=== PATIENT | male | born 1950 | race Caucasian/White ===

== ENCOUNTER 2020-04-24 16:48 | Inpatient (IN) | payer MEDICARE, OTHER ==
[2020-04-24] MEDS ORDERED: Potassium Chloride 20 MEQ Tab.ER PO ONE ×3 (17:01→23:00)
--- NOTE | 2020-04-24 17:48 | EDM.PDOC ---
ED HPI GENERAL MEDICAL PROBLEM - General Chief Complaint: General Stated Complaint: elevated potassium, elevated creatinine Time Seen by Provider: 04/24/20 16:59 Source of Information: Reports: Patient, Family History Limitations: Reports: No Limitations - History of Present Illness INITIAL COMMENTS - FREE TEXT/NARRATIVE: Patient sent here to ER from [facility] at clinic's closing time when they were not able to place patient at [facility] for hypokalemia and elevated Creatinine. Patient has history of chronic kidney disease related to systemic viral infection around 5 years ago per self report. Previous Cr on record here never climbed above 2.0. Today's level 4.73 K 2.9 Patient reports extreme fatigue over the past week. Last weekend had single large loose stool two days in a row. Has not had a bowel movement since then. Poor appetite. Feels light headed/weak/unsteady with ambulation. Daughter came down from [place] to spend last few days with him. No reported Covid exposure. No fevers/chills/URI complaints/cough/SOB. No emesis. Had nausea and stomach upset the two days he had diarrhea. Still urinating. No hematuria/frequency/burning. No neuro changes/focal weakness or numbness. - Related Data Allergies Allergy/AdvReac Type Severity Reaction Status Date / Time No Known Allergies Allergy Verified 04/24/20 17:36 Home Meds: Home Meds Albuterol Sulfate [Proventil Hfa] 2 puff IH Q6H 06/23/18 [History] Ferrous Sulfate 325 mg PO BIDMEALS 06/23/18 [History] Fluticasone/Umeclidin/Vilanter [Trelegy Ellipta 100-62.5-25] 1 puff INH DAILY 06/23/18 [History] Furosemide 20 mg PO DAILY@1500 06/23/18 [History] Furosemide 40 mg PO DAILY 06/23/18 [History] Potassium Chloride [Klor-Con M20] 20 meq PO DAILY 06/23/18 [History] Pregabalin [Lyrica] 75 mg PO DAILY@1200 06/23/18 [History] Pregabalin [Lyrica] 150 mg PO 08,22 06/23/18 [History] Rivaroxaban [Xarelto] 20 mg PO DAILY 06/23/18 [History] allopurinoL [Zyloprim] 150 mg PO DAILY 06/23/18 [History] atorvaSTATin [Lipitor] 80 mg PO BEDTIME 06/23/18 [History] buPROPion [Wellbutrin SR] 150 mg PO BID 06/23/18 [History] carvediloL [Carvedilol] 6.25 mg PO BID 06/23/18 [History] guaiFENesin [Mucus Relief ER] 600 mg PO BID 06/23/18 [History] Past Medical History - Past Health History Medical/Surgical History: Denies Medical/Surgical History Cardiovascular History: Reports: Afib, Blood Clots/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), High Cholesterol, PVD, Other (See Below) (viral myocarditis) Respiratory History: Reports: COPD Genitourinary History: Reports: BPH Musculoskeletal History: Reports: Gout, Other (See Below) (lower extremity swelling) Psychiatric History: Reports: Other (See Below) (On Wellbutrin to help with quitting smoking) Endocrine/Metabolic History: Reports: Obesity/BMI 30+ - Past Surgical History Musculoskeletal Surgical History: Reports: Shoulder Surgery Social & Family History - Tobacco Use Tobacco Use Status *Q: Former Tobacco User - Caffeine Use Caffeine Use: Reports: Other (minimal) - Alcohol Use Alcohol Use History: No - Recreational Drug Use Recreational Drug Use: No Drug Use in Last 12 Months: No - Living Situation & Occupation Living situation: Reports: Single, Alone Occupation: Employed ED ROS GENERAL - Review of Systems Review Of Systems: Comprehensive ROS is negative, except as noted in HPI. ED EXAM, GENERAL - Physical Exam Exam: See Below Exam Limited By: No Limitations General Appearance: Alert, No Apparent Distress, Obese Eye Exam: Bilateral Eye: EOMI, PERRL Ears: Hearing Grossly Normal Nose: No: Nasal Deformity, Nasal Swelling, Nasal Drainage Throat/Mouth: Normal Lips, Normal Voice, No Airway Compromise Head: Atraumatic, Normocephalic Neck: Supple, Non-Tender, Full Range of Motion Respiratory/Chest: No Respiratory Distress, No Accessory Muscle Use, Chest Non- Tender, Wheezing (faint/minimal wheezing at bases) Cardiovascular: Regular Rate, Rhythm, No Murmur GI/Abdominal: Soft, Non-Tender (Male) Exam: Deferred Rectal (Males) Exam: Deferred Back Exam: No: CVA Tenderness (L), CVA Tenderness (R), Muscle Spasm Extremities: Normal Capillary Refill, Pedal Edema (mild/bilateral) Neurological: Alert, Oriented, Normal Cognition Psychiatric: Normal Affect, Normal Mood Skin Exam: Warm, Dry, Intact, Normal Color Course - Vital Signs Last Recorded V/S: Last Vital Signs Temp 36.4 C 04/24/20 16:51 Pulse 68 04/24/20 16:51 Resp 16 04/24/20 16:51 BP 108/66 04/24/20 16:51 Pulse Ox 100 04/24/20 16:51 - Orders/Labs/Meds Orders: Active Orders 24 hr Category Date Time Status CORONAVIRUS COVID-19 TYRONE [MOLEC] Routine Lab 04/24/20 17:41 Ordered Meds: Medications Discontinued Medications Generic Name Dose Route Start Last Admin Trade Name Freq PRN Reason Stop Dose Admin Potassium Chloride 40 meq 04/24/20 17:01 04/24/20 17:36 Klor-Con M20 PO 04/24/20 17:02 40 meq ONETIME ONE Administration - Re-Assessments/Exams Free Text/Narrative Re-Assessment/Exam: 04/24/20 18:01 Call placed to [facility] and patient discussed with /Hospitalist. He recommended hospitalization here, with IV fluid replacement, ongoing monitoring of Bun/Cr, and potassium replacement. Departure - Departure Time of Disposition: 18:02 Disposition: Admitted As Inpatient 65 Condition: Good Clinical Impression: Hypokalemia Acute renal failure (ARF) Qualifiers: Acute renal failure type: unspecified Qualified Code(s): N17.9 - Acute kidney failure, unspecified - Discharge Information *PRESCRIPTION DRUG MONITORING PROGRAM REVIEWED*: Not Applicable *COPY OF PRESCRIPTION DRUG MONITORING REPORT IN PATIENT ROWENA: Not Applicable Referrals: Yolanda Lu PA-C [Primary Care Provider] - Forms: ED Department Discharge Sepsis Event Note (ED) - Evaluation Sepsis Screening Result: No Definite Risk - Focused Exam Vital Signs: Vital Signs Temp Pulse Resp BP Pulse Ox 04/24/20 16:51 36.4 C 68 16 108/66 100 - Problem List & Annotations (1) Acute renal failure (ARF) SNOMED Code(s): 20689282 Code(s): N17.9 - ACUTE KIDNEY FAILURE, UNSPECIFIED Status: Acute Priority: High Current Visit: Yes Annotation/Comment:: History of chronic kidney disease. Acute elevation of Cr to 4.73. Uncertain etiology. Will admit and give fluids/observe Cr per plan discussed with from [facility]/Hospitalist. [facility] not able to accept patient for transfer due to bed situation. If no significant improvement observed over the next few days to contact [facility] again and update plan. Qualifiers: Acute renal failure type: unspecified Qualified Code(s): N17.9 - Acute kidney failure, unspecified (2) Hypokalemia SNOMED Code(s): 38482140 Code(s): E87.6 - HYPOKALEMIA Status: Acute Priority: High Current Visit: Yes Annotation/Comment:: Oral supplementation initiated. 2.9 today (3) Elevated d-dimer SNOMED Code(s): 608829093 Code(s): R79.89 - OTHER SPECIFIED ABNORMAL FINDINGS OF BLOOD CHEMISTRY Status: Acute Priority: Medium Current Visit: Yes Annotation/Comment:: Mildly elevated at 622. Patient denies respiratory changes/SOB and is anticoagulated. Observe for now. (4) Hyperlipidemia SNOMED Code(s): 95323542 Code(s): E78.5 - HYPERLIPIDEMIA, UNSPECIFIED Status: Chronic Priority: Low Current Visit: No Annotation/Comment:: under therapy (5) COPD (chronic obstructive pulmonary disease) SNOMED Code(s): 16240170 Code(s): J44.9 - CHRONIC OBSTRUCTIVE PULMONARY DISEASE, UNSPECIFIED Status: Chronic Priority: Low Current Visit: No Annotation/Comment:: stable per history Qualifiers: COPD type: emphysema Emphysema type: unspecified Qualified Code(s): J43.9 - Emphysema, unspecified (6) BPH (benign prostatic hyperplasia) SNOMED Code(s): 348242717 Code(s): N40.0 - BENIGN PROSTATIC HYPERPLASIA WITHOUT LOWER URINRY TRACT SYMP Status: Chronic Priority: Low Current Visit: No Annotation/Comment:: stable per history Qualifiers: Lower urinary tract symptom presence: symptoms absent Qualified Code(s): N40.0 - Benign prostatic hyperplasia without lower urinary tract symptoms (7) Gout SNOMED Code(s): 34683456 Code(s): M10.9 - GOUT, UNSPECIFIED Status: Chronic Priority: Low Current Visit: No Annotation/Comment:: stable per history Qualifiers: Gout site: unspecified site Gout etiology: unspecified cause (8) Bilateral lower extremity edema SNOMED Code(s): 447058853, 97610399, 554112449 Code(s): R60.0 - LOCALIZED EDEMA Status: Chronic Priority: Low Current Visit: No Annotation/Comment:: stable per history. Uses Lasix to assist with control of symptoms (9) Peripheral vascular disease SNOMED Code(s): 783742010 Code(s): I73.9 - PERIPHERAL VASCULAR DISEASE, UNSPECIFIED Status: Chronic Priority: Low Current Visit: No Annotation/Comment:: stable per history. Uses Lyrica to assist with discomfort. (10) History of DVT of lower extremity SNOMED Code(s): 718192196 Code(s): Z86.718 - PERSONAL HISTORY OF OTHER VENOUS THROMBOSIS AND EMBOLISM Status: Chronic Priority: Low Current Visit: No Annotation/Comment:: IVC filter/chronic anticoagulation (11) Obesity SNOMED Code(s): 777313125, 587328686 Code(s): E66.9 - OBESITY, UNSPECIFIED Status: Chronic Priority: Low Current Visit: Yes Qualifiers: Obesity type: unspecified obesity type Obesity classification: unspecified obesity classification Serious obesity comorbidity presence: with serious comorbidity Qualified Code(s): E66.9 - Obesity, unspecified - Problem List Review Problem List Initiated/Reviewed/Updated: Yes - My Orders Last 24 Hours: My Active Orders 04/24/20 17:41 CORONAVIRUS COVID-19 TYRONE [MOLEC] Routine - Assessment/Plan Admission H&P: Please use this note as an admission H&P Last 24 Hours: My Active Orders 04/24/20 17:41 CORONAVIRUS COVID-19 TYRONE [MOLEC] Routine Assessment:: as above Plan: as above. Initiate IV fluids along with PO K replacement. Recheck labs daily. Follow up with [facility] by phone as needed depending on clinical course. If patient does well overall will need close follow up by his [facility] providers after discharge. Anticipate 3-4 day stay due to high level of creatinine. to assume care in AM
[2020-04-24] MEDS ORDERED: Ondansetron 4 MG/2 ML SDV IVPUSH PRN (18:17)
[2020-04-24] MEDS ORDERED: Acetaminophen 325 MG Tab PO PRN (18:17)
[2020-04-24] MEDS ORDERED: Sodium Chloride 0.9% 10 ML Syringe FLUSH PRN (18:17)
[2020-04-24] MEDS ORDERED: Sodium Chloride 0.9% 1,000 ML IV ONE (18:20)
[2020-04-24] MEDS: Sodium Chloride 0.9% 1,000 ML IV SCH (21:50)
[2020-04-25] MEDS ORDERED: Potassium Chloride 20 MEQ Tab.ER PO ONE ×3 (02:00→05:30)
[2020-04-25] MEDS: Sodium Chloride 0.9% 1,000 ML IV SCH (05:17)
[2020-04-25] MEDS ORDERED: Carvedilol 6.25 MG Tab PO SCH (07:30)
[2020-04-25] MEDS ORDERED: Tamsulosin 0.4 MG Cap.ER PO SCH (08:00)
[2020-04-25] MEDS ORDERED: buPROPion 150 MG Tab.SR PO SCH (08:00)
[2020-04-25] MEDS ORDERED: Tiotropium Inhaler 18 MCG Inhalation Powder Cap Kit of 5 INH SCH (08:00)
[2020-04-25] MEDS ORDERED: Ferrous Sulfate 325 MG Tab PO SCH (08:00)
[2020-04-25] MEDS ORDERED: Rosuvastatin 10 MG Tab PO SCH (08:00)
[2020-04-25] MEDS ORDERED: Formoterol/Mometasone 100-5 MCG 8.8 GM Inhaler IH SCH (08:00)
[2020-04-25] MEDS ORDERED: Apixaban 2.5 MG Tab PO SCH (08:00)
[2020-04-25] MEDS ORDERED: Allopurinol 100 MG Tab PO SCH (08:00)
[2020-04-25] MEDS ORDERED: Sodium Chloride 0.9% 1,000 ML IV ONE (08:52)
[2020-04-25 10:45] VITALS: BP 80/46; PULSE 60
[2020-04-25] MEDS ORDERED: Pregabalin 75 MG Cap PO SCH (12:00)
--- NOTE | 2020-04-25 12:11 | PCM.DCSUM1 ---
Discharge Summary - Hospital Course Free Text/Narrative:: Pt admitted yesterday with elevated Cr and hypotension Pt remains hypotensive and Cr remains elevated at 4.06 after 3 L NS D/W Dr Singh On-call hospitalist Chuy Thurston Will accept in transfer Diagnosis: Stroke: No - Discharge Data Discharge Date: 04/25/20 Discharge Disposition: DC/Tfer to Acute Hospital 02 Condition: Good - Referral to Home Health Primary Care Physician: Yolanda Lu PA-C - Discharge Diagnosis/Problem(s) (1) Hypotension SNOMED Code(s): 23657582 ICD Code: I95.9 - HYPOTENSION, UNSPECIFIED Status: Acute Current Visit: Yes Problem Details: Pt remains hypotensive after 3 L NS IVF D/W Dr Trell Thurston Will accept in transfer (2) Acute renal failure (ARF) SNOMED Code(s): 53877367 ICD Code: N17.9 - ACUTE KIDNEY FAILURE, UNSPECIFIED Status: Acute Priority: High Current Visit: Yes Problem Details: History of chronic kidney disease. Acute elevation of Cr to 4.73. Uncertain etiology. Will admit and give fluids/observe Cr per plan discussed with from [facility]/Hospitalist. [facility] not able to accept patient for transfer due to bed situation. If no significant improvement observed over the next few days to contact [facility] again and update plan. Cr improved to 4.06 after IVF Qualifiers: Acute renal failure type: unspecified Qualified Code(s): N17.9 - Acute kidney failure, unspecified - Patient Summary/Data Consults: Consultations 04/24/20 18:17 OT Evaluation and Treatment [CONS] Routine PT Evaluation and Treatment [CONS] Routine - Discharge Plan *PRESCRIPTION DRUG MONITORING PROGRAM REVIEWED*: Not Applicable *COPY OF PRESCRIPTION DRUG MONITORING REPORT IN PATIENT ROWENA: Not Applicable Home Medications: Home Meds Furosemide 20 mg PO DAILY@1500 06/23/18 [History] Furosemide 40 mg PO DAILY 06/23/18 [History] Pregabalin [Lyrica] 75 mg PO DAILY@1200 06/23/18 [History] allopurinoL [Zyloprim] 150 mg PO DAILY 06/23/18 [History] carvediloL [Carvedilol] 6.25 mg PO BIDMEALS 06/23/18 [History] Apixaban [Eliquis] 1 tab PO BID 04/24/20 [History] Ferrous Sulfate 1 tab PO BID 04/24/20 [History] Fluticasone/Umeclidin/Vilanter [Trelegy Ellipta 100-62.5-25 MCG] 1 inh PO DAILY 04/24/20 [History] Rosuvastatin Calcium 1 tab PO DAILY 04/24/20 [History] Tamsulosin [Flomax] 1 cap PO DAILY 04/24/20 [History] buPROPion [Wellbutrin SR] 1 tab PO BID 04/24/20 [History] calcitrioL [Calcitriol] 1 cap PO ASDIRECTED 04/24/20 [History] Forms: ED Department Discharge Referrals: Yolanda Lu PA-C [Primary Care Provider] - - Discharge Summary/Plan Comment DC Time >30 min.: No - General Info Date of Service: 04/25/20 - Review of Systems General: Reports: Weakness Pulmonary: Reports: Shortness of Breath Cardiovascular: Reports: No Symptoms - Patient Data Vitals - Most Recent: Last Vital Signs Temp 97.9 F 04/25/20 10:44 Pulse 60 04/25/20 10:44 Resp 18 04/25/20 10:44 BP 80/46 L 04/25/20 10:44 Pulse Ox 98 04/25/20 10:44 Weight - Most Recent: 219 lb 0.009 oz I&O - Last 24 hours: Intake & Output 04/25/20 04/25/20 04/25/20 02:59 10:59 18:59 Intake Total 400 2557 1092 Output Total 700 Balance 400 1857 1092 Lab Results - Last 24 hrs: Laboratory Results - last 24 hr 04/24/20 04/25/20 04/25/20 Range/Units 17:41 07:35 07:35 WBC 9.2 (4.0-10.2) K/uL RBC 3.66 L (4.33-5.41) M/uL Hgb 11.0 L D (13.1-16.8) g/dL Hct 35.5 L (39.0-49.0) % MCV 97.0 (84.0-98.0) fL MCH 30.1 (28.2-33.3) pg MCHC 31.0 L (31.7-36.0) g/dL RDW 14.9 H (11.2-14.1) % Plt Count 197 (150-350) K/uL Neut % (Auto) 70.0 (45.0-80.0) % Lymph % (Auto) 18.8 (10.0-50.0) % [place] % (Auto) 8.5 (2.0-14.0) % Eos % (Auto) 2.2 (0.0-5.0) % Baso % (Auto) 0.5 (0.0-2.0) % Neut # (Auto) 6.45 (1.40-7.00) K/uL Lymph # (Auto) 1.73 (0.50-3.50) K/uL [place] # (Auto) 0.78 (0.00-1.00) K/uL Eos # (Auto) 0.20 (0.00-0.50) K/uL Baso # (Auto) 0.05 (0.00-0.20) K/uL Sodium 145 (136-145) mmol/L Potassium 3.8 (3.5-5.1) mmol/L Chloride 110 H (98-107) mmol/L Carbon Dioxide 26.7 (21.0-32.0) mmol/L BUN 29 H (7-18) mg/dL Creatinine 4.06 H* (0.51-1.17) mg/dL Est Cr Clr Drug Dosing 16.38 mL/min Estimated GFR (MDRD) 15 mL/min Glucose 83 (74-106) mg/dL Calcium 7.5 L (8.5-10.1) mg/dL Magnesium 1.6 L (1.8-2.4) mg/dL SARS-CoV-2 RNA (TYRONE) Negative (NEGATIVE) Med Orders - Current: Current Medications Acetaminophen (Tylenol) 650 mg PO Q4H PRN PRN Reason: Pain (Mild 1-3)/fever Allopurinol (Zyloprim) 150 mg PO DAILY [facility] Last Admin: 04/25/20 07:17 Dose: 150 mg Documented by: Apixaban (Eliquis) 2.5 mg PO BID [facility] Last Admin: 04/25/20 07:18 Dose: 2.5 mg Documented by: Bupropion HCl (Wellbutrin Sr) 150 mg PO BID [facility] Last Admin: 04/25/20 07:18 Dose: 150 mg Documented by: Calcitriol (Rocaltrol) 0.25 mcg PO MoWeFr@0800 [facility] Carvedilol (Coreg) 6.25 mg PO BIDMEALS [facility] Last Admin: 04/25/20 07:18 Dose: 6.25 mg Documented by: Ferrous Sulfate (Ferrous Sulfate) 325 mg PO BID [facility] Last Admin: 04/25/20 07:26 Dose: 325 mg Documented by: Sodium Chloride (Normal Saline) 1,000 mls @ 150 mls/hr IV ASDIRECTED [facility] Last Admin: 04/25/20 05:17 Dose: 150 mls/hr Documented by: Magnesium Sulfate/Dextrose 1 (gm/ Premix) 100 mls @ 100 mls/hr IV ONETIME ONE Stop: 04/25/20 13:59 Mometasone Furoate/Formoterol Fumar (Dulera 100-5 Mcg) 2 puff IH BID [facility] Last Admin: 04/25/20 07:19 Dose: 2 inh Documented by: Ondansetron HCl (Zofran) 4 mg IVPUSH Q6H PRN PRN Reason: Nausea/Vomiting Pregabalin (Lyrica) 75 mg PO DAILY@1200 [facility] Last Admin: 04/25/20 12:05 Dose: 75 mg Documented by: Rosuvastatin Calcium (Crestor) 40 mg PO DAILY [facility] Last Admin: 04/25/20 07:18 Dose: 40 mg Documented by: Sodium Chloride (Saline Flush) 10 ml FLUSH ASDIRECTED PRN PRN Reason: Keep Vein Open Last Admin: 04/25/20 10:06 Dose: 10 ml Documented by: Tamsulosin HCl (Flomax) 0.4 mg PO DAILY [facility] Last Admin: 04/25/20 07:18 Dose: 0.4 mg Documented by: Tiotropium [place] (Spiriva Handihaler) 18 mcg INH DAILY [facility] Last Admin: 04/25/20 07:19 Dose: 1 inh Documented by: Discontinued Medications Sodium Chloride (Normal Saline) 1,000 mls @ 500 mls/hr IV .BOLUS ONE Stop: 04/24/20 20:19 Last Admin: 04/24/20 19:49 Dose: 500 mls/hr Documented by: Magnesium Sulfate/Dextrose 1 (gm/ Premix) 100 mls @ 100 mls/hr IV ONETIME ONE Stop: 04/25/20 09:51 Last Admin: 04/25/20 10:04 Dose: 100 mls/hr Documented by: Sodium Chloride (Normal Saline) 1,000 mls @ 500 mls/hr IV .BOLUS ONE Stop: 04/25/20 10:51 Last Admin: 04/25/20 11:59 Dose: 150 mls/hr Documented by: Potassium Chloride (Klor-Con M20) 40 meq PO ONETIME ONE Stop: 04/24/20 17:02 Last Admin: 04/24/20 17:36 Dose: 40 meq Documented by: Potassium Chloride (Klor-Con M20) 40 meq PO ONETIME ONE Stop: 04/24/20 20:01 Last Admin: 04/24/20 19:50 Dose: 40 meq Documented by: Potassium Chloride (Klor-Con M20) 20 meq PO ONETIME ONE Stop: 04/24/20 23:01 Last Admin: 04/24/20 23:34 Dose: 20 meq Documented by: Potassium Chloride (Klor-Con M20) 20 meq PO ONETIME ONE Stop: 04/25/20 03:01 Potassium Chloride (Klor-Con M20) 20 meq PO ONETIME ONE Stop: 04/25/20 05:31 Last Admin: 04/25/20 05:17 Dose: 20 meq Documented by: Potassium Chloride (Klor-Con M20) 20 meq PO ONETIME ONE Stop: 04/25/20 02:01 Last Admin: 04/25/20 02:50 Dose: 20 meq Documented by: - Exam Lungs: Reports: Decreased Breath Sounds Cardiovascular: Reports: Regular Rate GI/Abdominal Exam: Soft, Non-Tender
[2020-04-26] MEDS ORDERED: Calcitriol 0.25 MCG Cap PO SCH (08:00)
== END 2020-04-25 12:40 | DRG 684 ==
LOC: LL.ED 16:48 → LL.MS 17:50
PROVIDERS: ADMIT Emergency Medicine; ATTEND Emergency Medicine
DX: N17.9 Acute kidney failure, unspecified (principal); N18.9 Chronic kidney disease, unspecified; I12.9 Hypertensive chronic kidney disease with stage 1 through stage 4 chronic kidney disease, or unspecified chronic kidney disease; I95.9 Hypotension, unspecified; I48.91 Unspecified atrial fibrillation; E78.00 Pure hypercholesterolemia, unspecified; I73.9 Peripheral vascular disease, unspecified; R60.0 Localized edema; N40.0 Benign prostatic hyperplasia without lower urinary tract symptoms; M10.9 Gout, unspecified; E87.6 Hypokalemia; Z20.828 Contact with and (suspected) exposure to other viral communicable diseases; R79.89 Other specified abnormal findings of blood chemistry; E78.5 Hyperlipidemia, unspecified; J43.9 Emphysema, unspecified; Z79.01 Long term (current) use of anticoagulants; E66.9 Obesity, unspecified; Z87.891 Personal history of nicotine dependence; Z79.899 Other long term (current) drug therapy; Z68.33 Body mass index [BMI] 33.0-33.9, adult; Z86.718 Personal history of other venous thrombosis and embolism
CPT/HCPCS: 36415; 76770; 80048; 83735; 85025; 94640; 97163-GP; 99285-25; A9270-GY; J3475; J7030; U0002

== ENCOUNTER 2020-10-21 11:37 | Emergency (ER) | payer MEDICARE ==
--- NOTE | 2020-10-21 12:14 | EDM.PDOC ---
ED HPI GENERAL MEDICAL PROBLEM - General Chief Complaint: Lower Extremity Injury/Pain Stated Complaint: left ankle injury, fall at home Time Seen by Provider: 10/21/20 12:00 Source of Information: Reports: Patient, Family History Limitations: Reports: No Limitations - History of Present Illness INITIAL COMMENTS - FREE TEXT/NARRATIVE: Patient brought here by family after they found him on couch and he was complaining of recent fall and left ankle pain. Patient has history of falls and family notes increasing unsteadiness/weakness over time that accelerated this past month. Patient lives alone in house. Has not been getting out/exercising/walking much since start of pandemic. Having harder time getting around due to the ankle pain. Says he eats "once a day" and managed to hobble around to kitchen and bathroom yesterday. Patient denies other injuries/acute changes. Left Ankle Pain Score (Numeric/FACES): 4 - Related Data Allergies Allergy/AdvReac Type Severity Reaction Status Date / Time No Known Allergies Allergy Verified 10/21/20 11:55 Home Meds: Home Meds Furosemide 40 mg PO DAILY PRN 06/23/18 [History] allopurinoL [Zyloprim] 300 mg PO DAILY 06/23/18 [History] carvediloL [Carvedilol] 6.25 mg PO BIDMEALS 06/23/18 [History] Apixaban [Eliquis] 1 tab PO BID 04/24/20 [History] Fluticasone/Umeclidin/Vilanter [Trelegy Ellipta 100-62.5-25 MCG] 1 inh PO DAILY 04/24/20 [History] Rosuvastatin Calcium 1 tab PO BEDTIME 04/24/20 [History] Tamsulosin [Flomax] 1 cap PO DAILY 04/24/20 [History] buPROPion [Wellbutrin SR] 1 tab PO BID 04/24/20 [History] Aspirin [Halfprin] 81 mg PO DAILY 10/21/20 [History] Calcium Acetate 667 mg PO TID 10/21/20 [History] Ondansetron [Zofran ODT] 4 mg PO Q6HR PRN 10/21/20 [History] Past Medical History - Past Health History Medical/Surgical History: Denies Medical/Surgical History Cardiovascular History: Reports: Afib, Blood Clots/VTE/DVT, High Cholesterol, PVD, Other (See Below) Respiratory History: Reports: COPD Genitourinary History: Reports: BPH Musculoskeletal History: Reports: Gout, Other (See Below) Psychiatric History: Reports: Other (See Below) Endocrine/Metabolic History: Reports: Obesity/BMI 30+ - Past Surgical History Musculoskeletal Surgical History: Reports: Shoulder Surgery Social & Family History - Caffeine Use Caffeine Use: Reports: Coffee - Living Situation & Occupation Living situation: Reports: Single, Alone Occupation: Employed Review of Systems - Review of Systems Review Of Systems: See Below Constitutional: Reports: No Symptoms Eyes: Denies: Vision Change Ears: Reports: No Symptoms Nose: Reports: No Symptoms Mouth/Throat: Reports: No Symptoms Respiratory: Reports: No Symptoms. Denies: Shortness of Breath, Pleuritic Chest Pain Cardiovascular: Reports: No Symptoms. Denies: Chest Pain, Edema, Irregular Heart Rate, Lightheadedness, Palpitations, Syncope GI/Abdominal: Reports: No Symptoms. Denies: Abdominal Pain, Constipation, Decreased Appetite, Diarrhea, Nausea, Vomiting Genitourinary: Reports: No Symptoms Musculoskeletal: Reports: Other (left ankle pain) Skin: Denies: Bruising, Wound, Lesions Neurological: Reports: Difficulty Walking, Weakness, Gait Disturbance. Denies: Dizziness, Headache, Numbness, Change in Speech Psychiatric: Reports: No Symptoms ED EXAM, GENERAL - Physical Exam Exam: See Below Exam Limited By: No Limitations General Appearance: Alert, WD/WN, No Apparent Distress Eye Exam: Bilateral Eye: EOMI, PERRL Ears: Hearing Grossly Normal Nose: No: Nasal Deformity, Nasal Swelling, Nasal Drainage Throat/Mouth: Normal Lips, Normal Voice, No Airway Compromise Head: Atraumatic, Normocephalic Neck: Supple, Non-Tender, Full Range of Motion Respiratory/Chest: No Respiratory Distress, Lungs Clear, Normal Breath Sounds, Chest Non-Tender Cardiovascular: Normal Peripheral Pulses, Regular Rate, Rhythm, No Edema GI/Abdominal: Normal Bowel Sounds, Soft, Non-Tender, No Distention, Pelvis Stable (Male) Exam: Deferred Rectal (Males) Exam: Deferred Back Exam: No: CVA Tenderness (L), CVA Tenderness (R), Muscle Spasm, Paraspinal Tenderness, Vertebral Tenderness Extremities: Normal Capillary Refill, Other (tender left ankle area, more so medically. No obvious deformity. Mild swelling. No redness or bruising . Skin intact. Vasc. intact. ) Neurological: Alert, Normal Cognition Psychiatric: Normal Affect, Normal Mood Skin Exam: Warm, Dry, Intact, Normal Color Course - Vital Signs Last Recorded V/S: Last Vital Signs Temp 36.8 C 10/21/20 11:41 Pulse 63 10/21/20 11:56 Resp 18 10/21/20 11:56 BP 103/47 L 10/21/20 11:56 Pulse Ox 99 10/21/20 11:56 - Orders/Labs/Meds Orders: Active Orders 24 hr Category Date Time Status Ankle Min 3V Lt [CR] Stat Exams 10/21/20 11:39 Taken UA W/RAMA RFLX IF INDICATED [URIN] Stat Lab 10/21/20 11:38 Received UA W/MICROSCOPIC [URIN] Routine Lab 10/21/20 14:32 Ordered Labs: Laboratory Tests 10/21/20 10/21/20 10/21/20 Range/Units 11:45 11:45 11:45 WBC 6.7 (4.0-10.2) K/uL RBC 3.56 L (4.33-5.41) M/uL Hgb 10.7 L (13.1-16.8) g/dL Hct 34.1 L (39.0-49.0) % MCV 95.8 (84.0-98.0) fL MCH 30.1 (28.2-33.3) pg MCHC 31.4 L (31.7-36.0) g/dL RDW 15.3 H (11.2-14.1) % Plt Count 213 (150-350) K/uL Neut % (Auto) 77.7 (45.0-80.0) % Lymph % (Auto) 14.2 (10.0-50.0) % [place] % (Auto) 5.8 (2.0-14.0) % Eos % (Auto) 1.9 (0.0-5.0) % Baso % (Auto) 0.4 (0.0-2.0) % Neut # (Auto) 5.20 (1.40-7.00) K/uL Lymph # (Auto) 0.95 (0.50-3.50) K/uL [place] # (Auto) 0.39 (0.00-1.00) K/uL Eos # (Auto) 0.13 (0.00-0.50) K/uL Baso # (Auto) 0.03 (0.00-0.20) K/uL PT 10.9 (9.5-12.0) SEC INR 1.1 Sodium 140 (136-145) mmol/L Potassium 4.0 (3.5-5.1) mmol/L Chloride 106 (98-107) mmol/L Carbon Dioxide 24.5 (21.0-32.0) mmol/L BUN 22 H (7-18) mg/dL Creatinine 2.46 H D (0.51-1.17) mg/dL Est Cr Clr Drug Dosing 26.12 mL/min Estimated GFR (MDRD) 26 mL/min Glucose 113 H (70-99) mg/dL Calcium 8.0 L (8.5-10.1) mg/dL Total Bilirubin 1.1 H (0.2-1.0) mg/dL AST 16 (15-37) U/L ALT 22 (12-78) U/L Alkaline Phosphatase 95 (46-116) IU/L Total Protein 6.4 (6.4-8.2) g/dL Albumin 2.8 L (3.4-5.0) g/dL - Radiology Interpretation Free Text/Narrative:: Xray per Radiology showed "healing" distal fibula fracture. - Re-Assessments/Exams Free Text/Narrative Re-Assessment/Exam: 10/21/20 14:31 Basic labs obtained as family indicated patient has been getting weaker over the past month or so. Overall unremarkable. Hgb 10.7. Cr 2.46. This is a good number for the patient as he has been known previously to get over 4.0 Xray shows evidence that fracture is healing. Uncertain as to how old fracture is. Patient/family note that he has been falling at home. Family is interested in the patient moving closer to them in [place] as they are worried about his ability to live safely at home. Plan for now is to splint the left ankle. He will be going home with his family in the [place] area. They will follow up with his PCP and Ortho in regards to the left ankle injury/further treatment and also further snf planning given patient's increasing difficulties with balance and strength. Patient unable to safely use crutches. Departure - Departure Time of Disposition: 14:56 Disposition: Home, Self-Care 01 Condition: Good Clinical Impression: Repeated falls, Impaired mobility and ADLs Closed left fibular fracture Qualifiers: Encounter type: initial encounter Fibula location: distal Fracture morphology: unspecified fracture morphology Qualified Code(s): S82.832A - Other fracture of upper and lower end of left fibula, initial encounter for closed fracture - Discharge Information *PRESCRIPTION DRUG MONITORING PROGRAM REVIEWED*: Not Applicable *COPY OF PRESCRIPTION DRUG MONITORING REPORT IN PATIENT ROWENA: Not Applicable Referrals: PCP,Not In Area [Primary Care Provider] - Forms: ED Department Discharge Additional Instructions: Keep splint on for protection. Follow up in [place] with patient's primary provider and Orthopedics. They need to determine approximate age of fracture as it appears to not be a new break. Also need to determine best way to treat it. Look into options for PT/OT/ADLs and best living situation for patient. Sepsis Event Note (ED) - Focused Exam Vital Signs: Vital Signs Temp Pulse Resp BP Pulse Ox 10/21/20 11:56 63 18 103/47 L 99 10/21/20 11:41 36.8 C 62 20 105/49 L 99 10/21/20 11:37 36.8 C 60 18 112/49 L 99 - My Orders Last 24 Hours: My Active Orders 10/21/20 11:38 UA W/RAMA RFLX IF INDICATED [URIN] Stat 10/21/20 11:39 Ankle Min 3V Lt [CR] Stat 10/21/20 14:32 UA W/MICROSCOPIC [URIN] Routine - Assessment/Plan Last 24 Hours: My Active Orders 10/21/20 11:38 UA W/RAMA RFLX IF INDICATED [URIN] Stat 10/21/20 11:39 Ankle Min 3V Lt [CR] Stat 10/21/20 14:32 UA W/MICROSCOPIC [URIN] Routine
[2020-10-21 13:24] VITALS: BP 103/47; PULSE 63
== END 2020-10-21 15:15 | disposition home or self-care (01) ==
LOC: LL.ED 11:37
DX: S82.832A Other fracture of upper and lower end of left fibula, initial encounter for closed fracture (principal); R26.81 Unsteadiness on feet; I48.91 Unspecified atrial fibrillation; E78.00 Pure hypercholesterolemia, unspecified; Z86.718 Personal history of other venous thrombosis and embolism; J44.9 Chronic obstructive pulmonary disease, unspecified; N40.0 Benign prostatic hyperplasia without lower urinary tract symptoms; M10.9 Gout, unspecified; E66.9 Obesity, unspecified; Z68.32 Body mass index [BMI] 32.0-32.9, adult; Z79.82 Long term (current) use of aspirin; Z79.01 Long term (current) use of anticoagulants; Z79.899 Other long term (current) drug therapy; Z91.81 History of falling; W19.XXXA Unspecified fall, initial encounter; Y92.009 Unspecified place in unspecified non-institutional (private) residence as the place of occurrence of the external cause
CPT/HCPCS: 29515; 36415; 73610-LT; 80053; 85025; 85610; 99283-25; 99284

== ENCOUNTER 2021-03-31 11:34 | Emergency (ER) | payer MEDICARE ==
[2021-03-31] MEDS ORDERED: Sodium Chloride 0.9% 10 ML Syringe FLUSH PRN (11:49)
[2021-03-31] MEDS ORDERED: Lactated Ringers 1,000 ML IV SCH (12:00)
[2021-03-31 12:12] VITALS: PULSE 85
--- NOTE | 2021-03-31 12:18 | EDM.PDOC ---
ED HPI GENERAL MEDICAL PROBLEM - General Chief Complaint: General Stated Complaint: Dizzy, cough, n/v Time Seen by Provider: 03/31/21 11:40 Source of Information: Reports: Patient History Limitations: Reports: No Limitations - History of Present Illness INITIAL COMMENTS - FREE TEXT/NARRATIVE: Patient comes emergency department today from home with complaints of he had to come to the emergency department because his daughter went to leave him alone for being at home. Patient is a rather poor historian at best. Speaking with the daughter since Friday he has been weak lightheaded he has had a couple falls at home without injury. He has had some nausea and vomiting. No diarrhea. No fever no chills. The patient's only complaint is that he has had a cough for the past couple of days. That is nonproductive. He does have a history of chronic renal failure for which he used to get dialysis but does not anymore. He relates that he vomited maybe once but he does not really remember. He has no abdominal pain. No shortness of breath. Cough that is nonproductive. He complains of generalized weakness but nothing more than normal. No chest pain palpitations syncope. No abdominal pain. No diarrhea. He has been urinating okay. No painful urination. No urinary frequency. He does have his Covid vaccine. Patient has a history of A. fib chronic diastolic heart failure coronary artery disease navarrete lobar emphysema NIKO CKD stage IV - Related Data Allergies Allergy/AdvReac Type Severity Reaction Status Date / Time No Known Allergies Allergy Verified 10/21/20 11:55 Home Meds: Home Meds Furosemide 40 mg PO DAILY PRN 06/23/18 [History] allopurinoL [Zyloprim] 150 mg PO DAILY 06/23/18 [History] carvediloL [Carvedilol] 6.25 mg PO BIDMEALS 06/23/18 [History] Apixaban [Eliquis] 1 tab PO BID 04/24/20 [History] Rosuvastatin Calcium 1 tab PO BEDTIME 04/24/20 [History] buPROPion [Wellbutrin SR] 1 tab PO BID 04/24/20 [History] Aspirin [Halfprin] 81 mg PO DAILY 10/21/20 [History] Calcium Acetate 667 mg PO TIDMEALS 10/21/20 [History] Ondansetron [Zofran ODT] 4 mg PO Q6HR PRN 10/21/20 [History] Past Medical History - Past Health History Medical/Surgical History: Denies Medical/Surgical History Cardiovascular History: Reports: Afib, Blood Clots/VTE/DVT, High Cholesterol, PVD, Other (See Below) Respiratory History: Reports: COPD Genitourinary History: Reports: Acute Renal Failure, BPH Other Genitourinary History: Hx. of dialysis 2014 Musculoskeletal History: Reports: Gout Psychiatric History: Reports: Other (See Below) Endocrine/Metabolic History: Reports: Obesity/BMI 30+ - Past Surgical History Musculoskeletal Surgical History: Reports: Shoulder Surgery Social & Family History - Tobacco Use Tobacco Use Status *Q: Former Tobacco User Years of Tobacco use: 35 Used Tobacco, but Quit: Yes Month/Year Tobacco Last Used: 2015 Second Hand Smoke Exposure: No - Caffeine Use Caffeine Use: Reports: Coffee, Soda - Recreational Drug Use Recreational Drug Use: No - Living Situation & Occupation Living situation: Reports: Single, Alone Occupation: Employed ED ROS GENERAL - Review of Systems Review Of Systems: Comprehensive ROS is negative, except as noted in HPI. ED EXAM, GENERAL - Physical Exam Exam: See Below Exam Limited By: No Limitations General Appearance: Alert, WD/WN, No Apparent Distress Eye Exam: Bilateral Eye: EOMI Ears: Normal External Exam Nose: Normal Inspection Throat/Mouth: Normal Inspection (other than dry oral mucosa. ) Head: Atraumatic, Normocephalic Neck: Normal Inspection Respiratory/Chest: No Respiratory Distress, Lungs Clear, No Accessory Muscle Use, Chest Non-Tender, Decreased Breath Sounds. No: Crackles, Rales, Rhonchi, Wheezing Cardiovascular: Normal Peripheral Pulses (somewhat weak. ), No Murmur, Irregularly Irregular GI/Abdominal: Normal Bowel Sounds, Soft, Non-Tender (Male) Exam: Deferred Rectal (Males) Exam: Deferred Back Exam: Normal Inspection Extremities: Normal Inspection, Normal Range of Motion, Non-Tender, No Pedal Edema, Normal Capillary Refill Neurological: Alert, Oriented, Normal Cognition, No Motor/Sensory Deficits Psychiatric: Normal Affect, Normal Mood Skin Exam: Warm, Dry, Intact, Normal Color, No Rash Course - Vital Signs Last Recorded V/S: Last Vital Signs Temp 98.1 F 03/31/21 11:50 Pulse 85 03/31/21 11:50 Resp 18 03/31/21 11:50 BP 94/52 L 03/31/21 11:50 Pulse Ox 97 03/31/21 11:50 - Orders/Labs/Meds Orders: Active Orders 24 hr Category Date Time Status Peripheral IV Care [RC] . DIRECTED Care 03/31/21 11:51 Active Chest 2V [CR] Urgent Exams 03/31/21 11:49 Ordered C-REACTIVE PROTEIN [CHEM] Stat Lab 03/31/21 11:52 Received COMPREHENSIVE METABOLIC PN,CMP [CHEM] Stat Lab 03/31/21 11:52 Received CORONAVIRUS COVID-19 YTRONE [MOLEC] Stat Lab 03/31/21 11:38 Received LACTIC ACID [CHEM] Stat Lab 03/31/21 11:52 Received MAGNESIUM [CHEM] Stat Lab 03/31/21 11:52 Received PHOSPHORUS [CHEM] Stat Lab 03/31/21 12:19 Ordered UA RFX RAMA AND CULT IF INDIC [URIN] Stat Lab 03/31/21 11:49 Ordered Lactated Ringers [Ringers, Lactated] 1,000 ml Med 03/31/21 12:00 Active IV ASDIRECTED Sodium Chloride 0.9% [Saline Flush] Med 03/31/21 11:49 Active 10 ml FLUSH ASDIRECTED PRN Peripheral IV Insertion Adult [OM.PC] Stat Oth 03/31/21 11:49 Ordered Medication Orders Lactated Ringer's (Ringers, Lactated) 1,000 mls @ 125 mls/hr IV ASDIRECTED IBRAHIMA Last Admin: 03/31/21 11:59 Dose: 125 mls/hr Documented by: TODD Sodium Chloride (Sodium Chloride 0.9% 10 Ml Syringe) 10 ml FLUSH ASDIRECTED PRN PRN Reason: Keep Vein Open Labs: Laboratory Tests 03/31/21 Range/Units 11:52 WBC 5.1 (4.0-10.2) K/uL RBC 3.95 L (4.33-5.41) M/uL Hgb 11.4 L (13.1-16.8) g/dL Hct 35.6 L (39.0-49.0) % MCV 90.1 D (84.0-98.0) fL MCH 28.9 (28.2-33.3) pg MCHC 32.0 (31.7-36.0) g/dL RDW 15.0 H (11.2-14.1) % Plt Count 153 (150-350) K/uL Neut % (Auto) 78.0 (45.0-80.0) % Lymph % (Auto) 11.5 (10.0-50.0) % [place] % (Auto) 10.1 (2.0-14.0) % Eos % (Auto) 0.2 (0.0-5.0) % Baso % (Auto) 0.2 (0.0-2.0) % Neut # (Auto) 3.95 (1.40-7.00) K/uL Lymph # (Auto) 0.58 (0.50-3.50) K/uL [place] # (Auto) 0.51 (0.00-1.00) K/uL Eos # (Auto) 0.01 (0.00-0.50) K/uL Baso # (Auto) 0.01 (0.00-0.20) K/uL Meds: Medications Generic Name Dose Route Start Last Admin Trade Name Freq PRN Reason Stop Dose Admin Lactated Ringer's 1,000 mls @ 125 mls/hr 03/31/21 12:00 03/31/21 11:59 Ringers, Lactated IV 125 mls/hr ASDIRECTED IBRAHIMA Administration Sodium Chloride 10 ml 03/31/21 11:49 Sodium Chloride 0.9% 10 Ml Syringe FLUSH ASDIRECTED PRN Keep Vein Open - Re-Assessments/Exams Free Text/Narrative Re-Assessment/Exam: 03/31/21 12:18 IV was established labs were drawn. Lactated Ringer's 500 mill bolus and 125 mils an hour. I did review his chart in [facility] and on 03-06-21 he had a creatinine of 2.88 with a BUN of 21, potassium 3.9 sodium 141 phosphorus 2.6 03/31/21 13:41 His blood pressure is a little labile in the ED although reviewing his [facility] chart he has normally a blood pressure of about 100/50. He is not requiring any oxygen therapy. He is in no distress. He is not complaining of any nausea or vomiting in the emergency department. 03/31/21 13:44 Laboratory evaluation with a CBC with a white blood cell count of 5.1, hemoglobin 11.4, platelet count 153. CMP creatinine 2.61, BUN 33, phosphorus 3.0 magnesium 2.0. His creatinine at baseline is about 2.3-2.4 CRP 15.9. His Covid is POSITIVE with symptom onset of 03/27/21 His chest x-ray initially reviewed extemporaneously by myself does not show any infiltrate consolidation effusions. Radiological review to follow. This patient with his chronic kidney disease as well as his navarrete lobar emphysema is at high risk for sequelae of COVID-19. He is vaccinated patient although he is positive. Monoclonal antibody therapy would be appropriate for him at this time. Although we do not have any of this medication available due to the national shortage. I did call and talk with [facility] in [place] and they are able to give monoclonal antibody therapy on Friday at 1030. Information was explained to the patient as well as his family. EUA recommendation I spoke with the patient to provide information about the emergency use medication for Moe Wade. I offer them the fact she for patients and parents caregivers for UA medication to read and review for Casirivimab and Imdevimab. I stated that therapy has been approved by emergency with authorization and not fully FDA approved. Shared potential risk from therapy including adverse reactions and possibility of worsening sequelae. I discussed her potential treatment options are currently not FDA approved to treat COVID-19 although for this patient is not indicated questions were answered and he was comfortable with this plan. The patient himself voiced understanding agreed to proceed with the treatment for himself. A this time he does not meet inpatient criteria although he is just getting into the time from of symptom onset for worsening of disease. He will have to follow closely with PCP and have them notified on friday as well as his nephrology team. The patient and his family are comfortable with this plan and their questions answered. Departure - Departure Time of Disposition: 13:48 Disposition: Home, Self-Care 01 Clinical Impression: COVID Nausea & vomiting Qualifiers: Vomiting type: unspecified Vomiting Intractability: unspecified Qualified Code(s): R11.2 - Nausea with vomiting, unspecified Acute on chronic renal failure Qualifiers: Acute renal failure type: unspecified Chronic kidney disease stage: stage 4 (severe) Qualified Code(s): N17.9 - Acute kidney failure, unspecified; N18.4 - Chronic kidney disease, stage 4 (severe) - Discharge Information Instructions: Nausea and Vomiting, Adult, [id number], Chronic Kidney Disease, Adult, [id number], COVID-19: How to Protect Yourself and Others - CDC, COVID- 19: Quarantine vs. Isolation - CDC (06/22/2020), Emergency Use Authorization (EUA) of the [place] COVID-19 Vaccine: Fact Sheet for Recipients and Caregivers - FDA (01/11/2021), COVID-19: What to Do If You Are Sick- [facility] (09/20/2020) Referrals: Yolanda Lu PA-C [Primary Care Provider] - Forms: ED Department Discharge Additional Instructions: Stay home and quarantine for the 14 days from symptom development. Notify all close contacts of your diagnosis of covid. Push oral fluids especially water gatorade or powerade. This is so important especially with your kidney disease history. Small frequent meals. On friday there is an appointment set up for you at [facility] at 10:30 am. [facility], [address] [place] [address], [address] [place] of the hospital from [facility]. Contact phone number is [phone]. Nobody can go with you. Infusion takes about 3 hrs. No TV so bring something to keep occupied. Zofran 1 tablet every 6 hrs as needed for nausea. Bottle send home from the ED. Return to the ED if new or worsening symptoms. Contact your PCP on friday about your COVID status and plan of care. Also contact you nephrology provider to keep him aware. We will need to watch your kidney function and your status closely. Sepsis Event Note (ED) - Evaluation Sepsis Screening Result: No Definite Risk - Focused Exam Vital Signs: Vital Signs Temp Pulse Resp BP Pulse Ox 03/31/21 11:50 98.1 F 85 18 94/52 L 97 - My Orders Last 24 Hours: My Active Orders 03/31/21 11:38 CORONAVIRUS COVID-19 TYRONE [MOLEC] Stat 03/31/21 11:49 Chest 2V [CR] Urgent UA RFX RAMA AND CULT IF INDIC [URIN] Stat Sodium Chloride 0.9% [Saline Flush] 10 ml FLUSH ASDIRECTED PRN Peripheral IV Insertion Adult [OM.PC] Stat 03/31/21 11:51 Peripheral IV Care [RC] . DIRECTED 03/31/21 11:52 C-REACTIVE PROTEIN [CHEM] Stat COMPREHENSIVE METABOLIC PN,CMP [CHEM] Stat LACTIC ACID [CHEM] Stat MAGNESIUM [CHEM] Stat 03/31/21 12:00 Lactated Ringers [Ringers, Lactated] 1,000 ml IV ASDIRECTED 03/31/21 12:19 PHOSPHORUS [CHEM] Stat - Assessment/Plan Last 24 Hours: My Active Orders 03/31/21 11:38 CORONAVIRUS COVID-19 TYRONE [MOLEC] Stat 03/31/21 11:49 Chest 2V [CR] Urgent UA RFX RAMA AND CULT IF INDIC [URIN] Stat Sodium Chloride 0.9% [Saline Flush] 10 ml FLUSH ASDIRECTED PRN Peripheral IV Insertion Adult [OM.PC] Stat 03/31/21 11:51 Peripheral IV Care [RC] . DIRECTED 03/31/21 11:52 C-REACTIVE PROTEIN [CHEM] Stat COMPREHENSIVE METABOLIC PN,CMP [CHEM] Stat LACTIC ACID [CHEM] Stat MAGNESIUM [CHEM] Stat 03/31/21 12:00 Lactated Ringers [Ringers, Lactated] 1,000 ml IV ASDIRECTED 03/31/21 12:19 PHOSPHORUS [CHEM] Stat
[2021-03-31 12:30] LABS: ANION GAP 10.4 meq/L (7-15); CHLORIDE,CL 104 mmol/L (98-107); SODIUM,NA 138 mmol/L (136-145)
[2021-03-31 13:29] VITALS: BP 107/41
== END 2021-03-31 14:00 | disposition home or self-care (01) ==
LOC: LL.ED 11:34
DX: U07.1 COVID-19 (principal); N17.9 Acute kidney failure, unspecified; N18.4 Chronic kidney disease, stage 4 (severe); R11.2 Nausea with vomiting, unspecified; I48.91 Unspecified atrial fibrillation; J44.9 Chronic obstructive pulmonary disease, unspecified; E78.00 Pure hypercholesterolemia, unspecified; M10.9 Gout, unspecified; Z79.01 Long term (current) use of anticoagulants; Z79.899 Other long term (current) drug therapy; Z79.82 Long term (current) use of aspirin; Z86.718 Personal history of other venous thrombosis and embolism; Z87.891 Personal history of nicotine dependence
CPT/HCPCS: 71046; 80053; 83605; 83735; 84100; 85025; 86140; 99284; 99284-25; J7120; U0002

== ENCOUNTER 2021-05-14 01:32 | Emergency (ER) | payer MEDICARE ==
[2021-05-14] MEDS ORDERED: Sodium Chloride 0.9% 10 ML Syringe FLUSH PRN (01:43)
[2021-05-14] MEDS ORDERED: Morphine 2 MG/ML SYRINGE IVPUSH ONE (01:43)
[2021-05-14] MEDS ORDERED: Ondansetron 4 MG/2 ML SDV IV ONE (01:43)
--- NOTE | 2021-05-14 01:43 | EDM.PDOC ---
ED HPI GENERAL MEDICAL PROBLEM - General Chief Complaint: Upper Extremity Injury/Pain Stated Complaint: LEFT SIDE PAIN, LEFT SHOULDER PAIN S/P FALL Time Seen by Provider: 05/14/21 01:35 Source of Information: Reports: Patient, Family History Limitations: Reports: No Limitations - History of Present Illness INITIAL COMMENTS - FREE TEXT/NARRATIVE: Patient comes emergency department today from home with his son with concerns of a fall and left lateral chest pain. This patient approximately 12 hours ago at noon time was at home when he was ambulating his feet got caught on a rug and he fell landing on his left chest. He did not hit his head. There was no loss of conscious. He has no head neck or back pain. He fell landing on his left rib cage. He has had some severe pain to the left rib cage since the time of his fall. He has some difficulty breathing but no shortness of breath. No midsternal chest pain. No abdominal pain nausea or vomiting. Prior to his fall he did not have any symptoms of weakness dizziness lightheadedness chest pain. He has had no fever or chills. No cough or congestion. He has a history of atrial fibrillation, chronic diastolic heart failure, CVD, coronary artery disease, DVT, PAT navarrete lobar emphysema NIKO CKD stage IV. 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 Left Shoulder Pain Score (Numeric/FACES): 6 - Related Data Allergies Allergy/AdvReac Type Severity Reaction Status Date / Time No Known Allergies Allergy Verified 05/14/21 01:33 Home Meds: Home Meds Furosemide 40 mg PO DAILY PRN 06/23/18 [History] allopurinoL [Zyloprim] 150 mg PO DAILY 06/23/18 [History] carvediloL [Carvedilol] 6.25 mg PO BIDMEALS 06/23/18 [History] Apixaban [Eliquis] 1 tab PO BID 04/24/20 [History] Rosuvastatin Calcium 1 tab PO BEDTIME 04/24/20 [History] buPROPion [Wellbutrin SR] 1 tab PO BID 04/24/20 [History] Aspirin [Halfprin] 81 mg PO DAILY 10/21/20 [History] Calcium Acetate 667 mg PO TIDMEALS 10/21/20 [History] Ondansetron [Zofran ODT] 4 mg PO Q6HR PRN 10/21/20 [History] Fluticasone/Umeclidin/Vilanter [Trelegy Ellipta 100-62.5-25] 1 puff INH DAILY 05/14/21 [History] Sodium Bicarbonate 1 tab PO BID 05/14/21 [History] Tamsulosin [Flomax] 1 cap PO BEDTIME 05/14/21 [History] Past Medical History - Past Health History Medical/Surgical History: Denies Medical/Surgical History Cardiovascular History: Reports: Afib, Blood Clots/VTE/DVT, High Cholesterol, PVD, Other (See Below) Respiratory History: Reports: COPD Genitourinary History: Reports: Acute Renal Failure, BPH Other Genitourinary History: Hx. of dialysis 2014 Musculoskeletal History: Reports: Gout Psychiatric History: Reports: Other (See Below) Endocrine/Metabolic History: Reports: Obesity/BMI 30+ - Past Surgical History Musculoskeletal Surgical History: Reports: Shoulder Surgery Social & Family History - Caffeine Use Caffeine Use: Reports: Coffee, Soda - Living Situation & Occupation Living situation: Reports: Single, Alone Occupation: Employed Review of Systems - Review of Systems Review Of Systems: Comprehensive ROS is negative, except as noted in HPI. ED EXAM, GENERAL - Physical Exam Exam: See Below Exam Limited By: No Limitations General Appearance: Alert, WD/WN, No Apparent Distress, Thin (Frail appearing 70-year-old.) Eye Exam: Bilateral Eye: EOMI, PERRL Ears: Normal External Exam Nose: Normal Inspection Throat/Mouth: Normal Inspection Head: Atraumatic, Normocephalic Neck: Normal Inspection, Supple, Non-Tender, Full Range of Motion, Other (Trachea midline). No: Tender Lateral, Tender Midline Respiratory/Chest: Lungs Clear, No Accessory Muscle Use, Decreased Breath Sounds (Throughout.), Other (On the anterior left axillary line in the intercostal space proximately 789 he has some tenderness and I question of flail segment. No subcutaneous emphysema. No bruising.). No: Crackles, Rales, Rhonchi, Wheezing, Accessory Muscle Use Cardiovascular: Normal Peripheral Pulses, Regular Rate, Rhythm Peripheral Pulses: 2+: Radial (L), Radial (R) GI/Abdominal: Normal Bowel Sounds, Soft, Non-Tender (Male) Exam: Deferred Rectal (Males) Exam: Deferred Back Exam: Normal Inspection, Full Range of Motion. No: Paraspinal Tenderness, Vertebral Tenderness Extremities: Normal Inspection, Normal Range of Motion, No Pedal Edema, Normal Capillary Refill Neurological: Alert, Oriented, Normal Cognition, No Motor/Sensory Deficits Psychiatric: Normal Affect, Normal Mood Skin Exam: Warm, Dry, Intact, Normal Color, No Rash Course - Vital Signs Last Recorded V/S: Last Vital Signs Temp 98.2 F 05/14/21 01:35 Pulse 86 05/14/21 01:35 Resp 24 H 05/14/21 01:35 BP 125/54 L 05/14/21 01:35 Pulse Ox 100 05/14/21 01:35 - Orders/Labs/Meds Orders: Active Orders 24 hr Category Date Time Status Peripheral IV Care [RC] . DIRECTED Care 05/14/21 01:43 Active Ribs 2V wo Chest Lt [CR] Stat Exams 05/14/21 01:44 Taken Shoulder Comp Lt [CR] Stat Exams 05/14/21 01:45 Taken CORONAVIRUS COVID-19 TYRONE [MOLEC] Stat Lab 05/14/21 03:00 Received Sodium Chloride 0.9% [Saline Flush] Med 05/14/21 01:43 Active 10 ml FLUSH ASDIRECTED PRN Peripheral IV Insertion Adult [OM.PC] Stat Oth 05/14/21 01:43 Ordered Medication Orders Sodium Chloride (Sodium Chloride 0.9% 10 Ml Syringe) 10 ml FLUSH ASDIRECTED PRN PRN Reason: Keep Vein Open Labs: Laboratory Tests 05/14/21 05/14/21 Range/Units 02:50 02:50 WBC 11.3 H (4.0-10.2) K/uL RBC 3.88 L (4.33-5.41) M/uL Hgb 11.2 L (13.1-16.8) g/dL Hct 36.4 L (39.0-49.0) % MCV 93.8 D (84.0-98.0) fL MCH 28.9 (28.2-33.3) pg MCHC 30.8 L (31.7-36.0) g/dL RDW 16.0 H (11.2-14.1) % Plt Count 227 (150-350) K/uL Neut % (Auto) 79.9 (45.0-80.0) % Lymph % (Auto) 10.1 (10.0-50.0) % [place] % (Auto) 9.5 (2.0-14.0) % Eos % (Auto) 0.3 (0.0-5.0) % Baso % (Auto) 0.2 (0.0-2.0) % Neut # (Auto) 9.05 H (1.40-7.00) K/uL Lymph # (Auto) 1.14 (0.50-3.50) K/uL [place] # (Auto) 1.08 H (0.00-1.00) K/uL Eos # (Auto) 0.03 (0.00-0.50) K/uL Baso # (Auto) 0.02 (0.00-0.20) K/uL Sodium 144 (136-145) mmol/L Potassium 4.4 (3.5-5.1) mmol/L Chloride 107 (98-107) mmol/L Carbon Dioxide 29.7 (21.0-32.0) mmol/L Anion Gap 7.3 (7-15) meq/L BUN 31 H (7-18) mg/dL Creatinine 2.83 H (0.51-1.17) mg/dL Est Cr Clr Drug Dosing 23.16 mL/min Estimated GFR (MDRD) 22 mL/min Glucose 135 H (70-99) mg/dL Calcium 9.4 D (8.5-10.1) mg/dL Total Bilirubin 0.6 (0.2-1.0) mg/dL AST 22 (15-37) U/L ALT 13 (12-78) U/L Alkaline Phosphatase 96 (46-116) IU/L Total Protein 6.6 (6.4-8.2) g/dL Albumin 2.6 L (3.4-5.0) g/dL Meds: Medications Generic Name Dose Route Start Last Admin Trade Name Freq PRN Reason Stop Dose Admin Sodium Chloride 10 ml 05/14/21 01:43 Sodium Chloride 0.9% 10 Ml Syringe FLUSH ASDIRECTED PRN Keep Vein Open Discontinued Medications Generic Name Dose Route Start Last Admin Trade Name Freq PRN Reason Stop Dose Admin Morphine Sulfate 2 mg 05/14/21 01:43 05/14/21 02:46 Morphine 2 Mg/Ml Syringe IVPUSH 05/14/21 01:44 2 mg ONETIME ONE Administration Ondansetron HCl 4 mg 05/14/21 01:43 05/14/21 02:47 Ondansetron 4 Mg/2 Ml Sdv IV 05/14/21 01:44 4 mg ONETIME ONE Administration - Radiology Interpretation Free Text/Narrative:: Chest x-ray initially reviewed extemporaneously by myself. There is no hemopneumothorax. There are multiple rib fractures along the left of the chest. There is clearly a flail segment what appears to be rib #9. Radiological review to follow. Patient Name: RADHA ROSARIO Date of : 1950 Procedure: XRAY SHOULDER MIN 2 VIEWS LT Date of Service: 05/14/2021 EXAM: XRAY SHOULDER MIN 2 VIEWS LT INDICATION: Male, 70 years year old patient, ICD-10 W19.XXXA Fall ICD-10 M25.519 Shoulder pain COMPARISON(S): 07/26/2016 TECHNIQUE: 3 view(s) of the left shoulder were obtained. FINDINGS: The soft tissue structures are unremarkable. Normal visualized ipsilateral pulmonary apex. There are chronic healed fractures involving anterior lateral third and fourth ribs on the left. There is no acute fracture. Grossly unremarkable total shoulder arthroplasty. Alignment is near anatomic. No hardware complication. There is degenerative arthrosis of the acromioclavicular joint. IMPRESSION: Unremarkable left shoulder arthroplasty. No acute bony abnormality. Patient Name: RADHA ROSARIO Date of : 1950 Procedure: XRAY RIBS UNILAT MIN 2 VIEWS LT Date of Service: 05/14/2021 EXAM: XRAY RIBS UNILAT MIN 2 VIEWS LT INDICATION: Male, 70 years year old patient, ICD-10 W19.XXXA Fall COMPARISON(S): Chest x-ray 03/31/2021 TECHNIQUE: 4 view(s) of the left chest wall/ribs. FINDINGS: There are acute mildly displaced fractures involving 6-9 posterior lateral ribs on the left. There is minimal pleural effusion on the left. No visualized pneumothorax. Left lung base atelectasis. IMPRESSION: Acute fractures involving sixth and ninth ribs on the left. No visible pneumothorax. Trace pleural effusion. Finalized by: Stacy Nesbitt MD on 05/14/2021 2:38 AM P[employer]MER - Re-Assessments/Exams Free Text/Narrative Re-Assessment/Exam: IV established labs drawn. Morphine 2mg IVP Zofran prophylactic nausea. CBC with a WBC 11.3, hemoglobin 11.2, platelet count 227. Creatinine 2.83, BUN 31 which appears to be about baseline for this patient. Although the radiologist did not comment on flail segments I clearly identify flail fragments and at least 2 ribs on the left lateral chest wall. Due to these multiple rib fractures and flail segment concerns the patient's age fragility I called and spoke with [facility] in [place]. HPI ER course findings and concerns were relayed to Dr. Meza in the ED. His questions were answered and he accepted the patient in transfer at this time for further care and management. No new orders or directions given at this time. I discussed my concerns of the multiple rib fractures as well as flail segment without the presence of subcut air or pneumothorax and the best practice to send to a trauma center for further care and management. The patient and the son were comfortable with this plan and their questions were answered. Departure - Departure Time of Disposition: 03:39 Disposition: DC/Tfer to Acute Hospital 02 Clinical Impression: Multiple fractures of ribs, right side, initial encounter for closed fracture Flail chest Qualifiers: Encounter type: initial encounter Fracture type: closed Qualified Code(s): S22.5XXA - Flail chest, initial encounter for closed fracture COPD (chronic obstructive pulmonary disease) Qualifiers: COPD type: emphysema Emphysema type: unspecified Qualified Code(s): J43.9 - Emphysema, unspecified CKD (chronic kidney disease) Qualifiers: Chronic kidney disease stage: unspecified stage Qualified Code(s): N18.9 - Chronic kidney disease, unspecified - Discharge Information Forms: ED Department Discharge, Interfacility Transfer [facility] Sepsis Event Note (ED) - Focused Exam Vital Signs: Vital Signs Temp Pulse Resp BP Pulse Ox 05/14/21 01:35 98.2 F 86 24 H 125/54 L 100 - My Orders Last 24 Hours: My Active Orders 05/14/21 01:43 Peripheral IV Care [RC] . DIRECTED Sodium Chloride 0.9% [Saline Flush] 10 ml FLUSH ASDIRECTED PRN Peripheral IV Insertion Adult [OM.PC] Stat 05/14/21 01:44 Ribs 2V wo Chest Lt [CR] Stat 05/14/21 01:45 Shoulder Comp Lt [CR] Stat 05/14/21 03:00 CORONAVIRUS COVID-19 TYRONE [MOLEC] Stat - Assessment/Plan Last 24 Hours: My Active Orders 05/14/21 01:43 Peripheral IV Care [RC] . DIRECTED Sodium Chloride 0.9% [Saline Flush] 10 ml FLUSH ASDIRECTED PRN Peripheral IV Insertion Adult [OM.PC] Stat 05/14/21 01:44 Ribs 2V wo Chest Lt [CR] Stat 05/14/21 01:45 Shoulder Comp Lt [CR] Stat 05/14/21 03:00 CORONAVIRUS COVID-19 TYRONE [MOLEC] Stat
[2021-05-14 03:14] LABS: ANION GAP 7.3 meq/L (7-15)
[2021-05-14 03:20] LABS: PTT,PARTIAL THROMBOPLSTIN TIME 22.1 SEC (24.5-32.8)
[2021-05-14 03:48] VITALS: BP 125/59; PULSE 88
[2021-05-14] MEDS ORDERED: Morphine 4 MG/ML Syringe IVPUSH ONE (03:49)
[2021-05-14] MEDS ORDERED: Lactated Ringers 1,000 ML IV SCH (04:00)
== END 2021-05-14 05:30 ==
LOC: LL.ED 01:32
DX: S22.41XA Multiple fractures of ribs, right side, initial encounter for closed fracture (principal); J43.9 Emphysema, unspecified; N18.4 Chronic kidney disease, stage 4 (severe); I48.91 Unspecified atrial fibrillation; I50.32 Chronic diastolic (congestive) heart failure; E78.00 Pure hypercholesterolemia, unspecified; N40.0 Benign prostatic hyperplasia without lower urinary tract symptoms; I25.10 Atherosclerotic heart disease of native coronary artery without angina pectoris; M10.9 Gout, unspecified; E66.9 Obesity, unspecified; Z68.23 Body mass index [BMI] 23.0-23.9, adult; Z86.718 Personal history of other venous thrombosis and embolism; Z79.01 Long term (current) use of anticoagulants; Z79.82 Long term (current) use of aspirin; Z79.899 Other long term (current) drug therapy; W18.30XA Fall on same level, unspecified, initial encounter; Y92.009 Unspecified place in unspecified non-institutional (private) residence as the place of occurrence of the external cause
CPT/HCPCS: 36415; 71100-LT; 73030-LT; 80053; 85025; 85610; 85730; 87426; 96374; 96375; 96376; 99284; 99285-25; J2270; J2405; J7120